=== PATIENT | female | born 1985 | race Caucasian/White ===

== ENCOUNTER 2016-10-17 13:55 | Inpatient (IN) | payer OTHER ==
[~2016-10-17] VITALS: Ht 157.5 cm; Wt 49.4 kg
--- NOTE | ~2016-10-17 | PN ---
Unit #: [id number] #: [id number] Patient: KOLE STEPHENSON [id number] [facility] [address] [place] [address] [id number] MR#: [id number] NAME: KOLE STEPHENSON ROOM: P214 Age: 31 Sex: F Admission Date: 10/17/2016 : 1985 Attending Physician: Ester Tom M.D. Admitting Physician: Ester Tom M.D. Primary Care Physician: Primary Care Physician Brittanie CHANDLER NOTES DATE 10/19/2016 DISCUSSION Ms. Stephenson is a 31-year-old white female who was seen today and chart was reviewed and case was discussed with the staff. She remains anxious, withdrawn and rather seclusive to herself (1)____ depressive symptoms. Meanwhile, she has been cooperative with treatment recommendations as she has been taking the medications and tolerating them fairly well with no reported side effects. MENTAL STATUS EXAMINATION Young white female who was casually dressed with fair personal hygiene, appears to be in no acute distress or discomfort. She was awake and alert on interaction with intact orientation. Her mood was anxious with congruent affect. She denies any suicidal or homicidal ideations. Her insight and judgement remains slightly impaired. TREATMENT PLAN 1. We will continue her on her current medications and treatment protocol. We will monitor her response to medication and make further adjustments as needed. 2. We will continue to follow up. Dictated by... Dwayne Worley/philomena TD: 10/20/2016 00:59 JOB #: [id number] Unit #: [id number] #: [id number] Patient: KOLE STEPHENSON PROGRESS NOTES Page 1 of 1 X Ester Tom MD PROGRESS NOTE
--- NOTE | ~2016-10-17 | PN ---
Unit #: [id number] #: [id number] Patient: KOLE STEPHENSON [id number] [facility] [address] [place] [address] [id number] I MR#: [id number] NAME: KOLE STEPHENSON ROOM: P214 Age: 31 Sex: F Admission Date: 10/17/2016 : 1985 Attending Physician: Ester Tom M.D. Admitting Physician: Ester Tom M.D. Primary Care Physician: Primary Care Physician Brittanie CHANDLER NOTES DATE OF SERVICE: 10/18/2016 SUBJECTIVE Ms. Stephenson is a 31-year-old single white female, who was seen today and chart was reviewed and the case was discussed with the staff. She has been anxious, withdrawn, and rather seclusive to herself. Meanwhile, she has been cooperative with treatment recommendations and has been taking the medications and tolerating them fairly well with no reported side effects. MENTAL STATUS EXAMINATION Young white female, who was casually dressed with fair personal hygiene, appears to be in no acute distress or discomfort. She was awake and alert on interaction with intact orientation. Her mood was anxious with a congruent affect. She denies any suicidal or homicidal ideations. Her insight and judgment remain slightly impaired. TREATMENT PLAN 1. We will continue her on her current medications and treatment protocol. We will monitor her response and make further adjustments as needed. 2. We will continue to follow up. Dictated by... Dwayne Worley/nida TD: 10/18/2016 13:18 JOB #: [id number] Unit #: [id number] #: [id number] Patient: KOLE STEPHENSON PROGRESS NOTES Page 1 of 1 X Ester Tom MD PROGRESS NOTE
--- NOTE | ~2016-10-17 | PA ---
Unit #: [id number] #: [id number] Patient: KOLE STEPHENSON [id number] [facility] [address] [place] [address] [id number] Kandi MR#: [id number] NAME: KOLE STEPHENSON ROOM: P214 Age: 31 Sex: F Admission Date: 10/17/2016 : 1985 Date of Assessment: 10/17/2016 Attending Physician: Ester Tom M.D. Admitting Physician: Ester Tom M.D. Primary Care Physician: Primary Care Physician No PSYCHIATRIC ASSESSMENT JOB NOTE: VERIFY ADT DATE OF SERVICE 10/17/2016 IDENTIFYING DATA Ms. Stephenson is a 31-year-old single white female, who is a resident of [place], [place], and was self-referred to the hospital on a voluntary basis. CHIEF COMPLAINT "When I was here the last time, I was not all the way honest and I was scared". HISTORY OF PRESENT ILLNESS Ms. Stephenson is a 31-year-old white female with history of substance abuse and mood disorder, who came to the hospital with COWS of 16 indicating significant withdrawal symptoms from opioids as she stated "last week, I started to get really depressed I came in the first time and I tried to quit and I thought that I could do it all on my own and I have been using heroin about 0.5 g t.i.d. for the past 2 months before that I was locked up for about a month and that was the longest I have been sober, my last use was yesterday morning and starting to have some withdrawal symptoms of body aches and stated my back hurts and I am really emotional, I feel like I need to throw out something, is trying to come out, but stated I am not sleeping, I don't sleep any night, I am starting to have diarrhea my mom has had temporary custody of my kids and my ex-boyfriend killed my fiance in front of me and I just was not in the right state of mind and I was not sleepy that I took them, I just needed her to help me, so I could get some help, I want to get clean, so I would be able to get my children back, I also want to get some stable employment and housing and know my mom will give them back to me if I do the right thing, I cry a lot and stay away from people, because of my depression, I cannot sleep and also being using Xanax, I use it about once or twice a week and I have those about 4 days ago and sometimes I think that I'm hearing things and I do not know what to do." The patient does report increasing depression, anxiety, feelings of hopelessness and helplessness, and suicidal ideations and as such, recommendation for inpatient level of care for safety and stabilization was made and the patient was stepped up to the inpatient unit. SUBSTANCE ABUSE HISTORY The patient reports a history of opioids, amphetamines, and benzodiazepine Unit #: [id number] #: [id number] Patient: KOLE STEPHENSON abuse, but opioids particularly IV heroin has been her drug of choice as she reports that she has been using 0.5 g t.i.d. PAST PSYCHIATRIC HISTORY The patient has had history of inpatient chemical dependency treatment at [facility] in the past. Review of the medical records indicate currently she is not active in any treatment program, is not seeing a psychiatrist, and is not taking any psychotropic medications. PAST MEDICAL HISTORY No acute or chronic medical illnesses. ALLERGIES No known medication allergies. CURRENT MEDICATIONS None. PERSONAL AND SOCIAL HISTORY A 31-year-old white female, who reports that she is single, unemployed, and essentially homeless, and has 3 children, they are currently with her mother and she reports poor social support system. MENTAL STATUS EXAMINATION Young white female, who was casually dressed with fair personal hygiene, appears to be in no acute distress or discomfort. She was awake and alert on interaction with intact orientation to time, place, and person. Her mood was anxious and depressed with a congruent affect. Her speech is slow and restricted in content. The patient reports having suicidal ideations, but denies any homicidal ideations, and also denies any auditory or visual hallucinations. Her insight and judgment remain significantly impaired. DIAGNOSTIC IMPRESSION Psychiatric: Opioid dependence, moderate and acute withdrawals; methamphetamine abuse, moderate; benzodiazepine abuse, moderate. Medical: None. Stressors: Moderate psychosocial stressors. TREATMENT PLAN 1. The patient has presented with history of substance abuse and mood disorder, and has been decompensating and will need inpatient hospitalization for safety and stabilization. We will start her back on her home medications. We will adjust the medications and monitor response. 2. Supportive therapy was provided to the patient. 3. Safe, structured, and nourishing environment will be reported. ESTIMATED LENGTH OF STAY 5 to 7 days. ABILITY TO HELP SELF Limited. WILLINGNESS TO HELP SELF The patient appears to be willing to help self. STRENGTHS 1. Communicative. 2. Cooperative. Unit #: [id number] #: [id number] Patient: KOLE STEPHENSON 1. Chronic dysphoric symptoms. 2. Poor social support system. DISCHARGE CRITERIA This will be contingent upon the patient's ability to show resolution of her depression and anxiety and her ability to stay safe to herself, particularly after discharge from the hospital. Dictated by... Dwayne Worley/nida TD: 10/18/2016 08:26 JOB #: [id number] PSYCHIATRIC ASSESSMENT Page 1 of 1 X Ester Tom MD X PSYCHIATRIC ASSESSMENT
--- NOTE | ~2016-10-17 | HP ---
Unit #: [id number] #: [id number] Patient: ROBERTA LOVE [id number] [place] [address] [id number] MR#: [id number] NAME: ROBERTA LOVE ROOM: P214 Age: 31 Sex: F Admission Date: 10/17/2016 : 1985 Attending Physician: Ester Tom M.D. Admitting Physician: Ester Tom M.D. Primary Care Physician: Primary Care Physician No HISTORY AND PHYSICAL HISTORY OF PRESENT ILLNESS Roberta is a 31 year old admitted to [address] [place] [address] because of her polysubstance abuse which includes IV heroin and benzodiazepines. PAST MEDICAL HISTORY 1. Long history of illicit substance abuse to include IV heroin 2. Obesity. PAST SURGICAL HISTORY Nothing reported. ALLERGIES No known drug allergies. SOCIAL HISTORY Smokes one pack per day. Drinks alcohol rarely. Admits to a long history of illicit substance abuse to include IV heroin. FAMILY HISTORY Medically noncontributory. REVIEW OF SYSTEMS CONSTITUTIONAL: No fever or chills. HEENT: Denies any sore throat, ear pain or runny nose. CARDIOVASCULAR: Denies chest pain, irregular heart rhythm or palpitations. CHEST: Denies shortness of breath or cough. No hemoptysis. GASTROINTESTINAL: Denies nausea, vomiting, diarrhea or chronic constipation. ENDOCRINE: Denies history of increased thirst or urination. No recent significant weight loss or gain. GENITOURINARY: Denies dysuria, frequency, or hematuria. SKIN: Denies any rashes. HEMATOLOGIC: Denies history of increased bleeding or bruising. MUSCULOSKELETAL: Denies any hot, swollen joints. No generalized muscle pain. NEUROLOGIC: Denies problems with vision or speech. No frequent, severe headaches. No numbness, tingling or weakness in any extremities. Denies loss of bladder or bowel control. CURRENT MEDICATIONS Detox protocol Unit #: [id number] #: [id number] Patient: ROBERTA LOVE PHYSICAL EXAMINATION GENERAL: Alert, well-nourished, in no apparent distress. VITAL SIGNS: Blood pressure 128/84, heart rate 100, respirations 16, temperature 98.6. WEIGHT: 109. HEIGHT: 5 foot 2 inches. SKIN: Warm and dry without rash or lesion. HEENT: Normocephalic. TMs not viewed. Oral and nasal passages clear. Conjunctivae clear. Pupils equal, round and reactive to light and accommodation. Extraocular movements intact. NECK: Supple without lymphadenopathy or thyromegaly. HEART: Regular rate and rhythm without murmur. LUNGS: Clear. ABDOMEN: Soft, nontender. : Not done. EXTREMITIES: No evidence of cyanosis or clubbing. She does have two plus edema up to her knees bilaterally. NEUROLOGICAL: Grossly within normal limits. Cranial Nerves: II: Visual elizabeth are intact. III, IV AND : Extraocular movements are intact. Pupils are equal, round and reactive to light. V: Facial sensation is grossly normal. VII: Facial movements and expression are normal. VIII: Auditory acuity grossly intact. IX, X: Uvula is midline. Phonation is normal. XI: Patient shrugs shoulders and turns head normally. XII: Tongue protrudes in the midline. Sensory and Motor Function: Sensory and motor sensation is grossly normal. Motor: moves all extremities well. Coordination: Gait is normal. Deep Tendon Reflexes: Intact. IMPRESSION 1. Psychiatric admission. 2. Long history of illicit substance abuse. 3. Lower extremity edema. RECOMMENDATIONS PSYCHIATRIC: Per psychiatrist. MEDICAL: 1. I see no contraindications to participating in facility's activities. 2. Lasix 20 mg 1 p.o. b.i.d. and KCL 20 mEq p.o. q day. 3. Check a BMP. MEDICAL PROGNOSIS Good. MEDICAL CONDITION Stable. Dictated by... Julienne Sharma P.A.-C. for Dwayne Jenkins Unit #: [id number] #: [id number] Patient: ROBERTA LOVE TD: 10/18/2016 01:40 JOB #: [id number] HISTORY AND PHYSICAL Page 1 of 1 X Julienne Sharma X HISTORY AND PHYSICAL
--- NOTE | ~2016-10-17 | PN ---
Unit #: [id number] #: [id number] Patient: KOLE STEPHENSON [id number] [facility] [address] [place] [address] [id number] I MR#: [id number] NAME: KOLE STEPHENSON ROOM: P214 Age: 31 Sex: F Admission Date: 10/17/2016 : 1985 Attending Physician: Ester Tom M.D. Admitting Physician: Ester Tom M.D. Primary Care Physician: Primary Care Physician Brittanie BANDA PROGRESS NOTES DATE 10/20/2016 DISCUSSION Ms. Stephenson is a 31-year-old white female who was seen today and chart was reviewed and case was discussed with the staff. She has been anxious, withdrawn and rather seclusive to herself and appears to be in distress and discomfort as she is actively detoxing and has been vomiting most of the night and was seen to be uncomfortable as of this morning. Meanwhile, she has been taking medications and tolerating them fairly well. MENTAL STATUS EXAMINATION Young white female who was casually dressed with fair personal hygiene and appears to be in no acute distress or discomfort. She was awake and alert on interaction with intact orientation. Her mood was anxious with congruent affect. She denies any suicidal or homicidal ideations. Her insight and judgement remains slightly impaired. TREATMENT PLAN 1. We will continue on current medications and treatment protocol. Will monitor her response to the medications and make further adjustments as needed. 2. Will continue to follow up. Dictated by... Dwayne Worley/elvi TD: 10/20/2016 23:11 JOB #: [id number] Unit #: [id number] #: [id number] Patient: KOLE STEPHENSON PROGRESS NOTES Page 1 of 1 X Ester Tom MD PROGRESS NOTE
--- NOTE | ~2016-10-17 | PN ---
Unit #: [id number] #: [id number] Patient: KOLE STEPHENSON [id number] [facility] [address] [place] [address] [id number] I MR#: [id number] NAME: KOLE STEPHENSON ROOM: P214 Age: 31 Sex: F Admission Date: 10/17/2016 : 1985 Attending Physician: Ester Tom M.D. Admitting Physician: Ester Tom M.D. Primary Care Physician: Primary Care Physician Brittanie CHANDLER NOTES DATE 10/21/2016 DISCUSSION Ms. Stephenson is a 31-year-old white female with substance abuse and mood disorder who was seen today and chart was reviewed and case was discussed with the staff. She has been anxious, irritable and showing poor insight into her situation as she has been detoxing but then has been wanting to leave the hospital. Meanwhile, she has been taking medications and tolerating them fairly well with no reported side effects. MENTAL STATUS EXAMINATION Young white female who was casually dressed with fair personal hygiene and appears to be in no acute distress or discomfort. She was awake and alert on interaction with intact orientation. Her mood was anxious with congruent affect. She denies any suicidal or homicidal ideation. Her insight and judgement remains slightly impaired. TREATMENT PLAN 1. Will continue on current medications and treatment protocol. Will monitor her response to the medications and make further adjustments as needed. 2. Will continue to follow up. Dictated by... Ester Tom M.D. IAA/elvi TD: 10/21/2016 22:50 JOB #: [id number] Unit #: [id number] #: [id number] Patient: KOLE STEPHENSON PROGRESS NOTES Page 1 of 1 X Ester Tom MD PROGRESS NOTE
--- NOTE | ~2016-10-17 | DS ---
Unit #: [id number] #: [id number] Patient: [facility]PHENSON [id number] [address] [place] [address] [id number] I MR#: [id number] NAME: KOLE STEPHENSON ROOM: [facility] Age: 31 Sex: F Admission Date: 10/17/2016 : 1985 Discharge Date: 10/22/2016 Attending Physician: Ester Tom M.D. Primary Care Physician: Primary Care Physician No DISCHARGE SUMMARY IDENTIFYING DATA Ms. Stephenson is a 31-year-old single white female, who is a resident of [place], [place], and was self-referred to the hospital on a voluntary basis. DISCHARGE DIAGNOSES Psychiatric: Opioid dependence, moderate, in acute withdrawals; methamphetamine abuse, moderate; and benzodiazepine abuse, moderate. Medical: None. Stressors: Moderate psychosocial stressors. HISTORY OF PRESENT ILLNESS Please see initial psychiatric evaluation for details. PAST PSYCHIATRIC HISTORY Please see initial psychiatric evaluation for details. PAST MEDICAL HISTORY Please see initial psychiatric evaluation for details. HOSPITAL COURSE The patient was admitted to the adult psychiatric and chemical dependency unit at [facility] and was oriented to the hospital environment. Routine p.r.n. medications were initiated and she was started back on her home medications and medications were adjusted and she was closely monitored. She was taking the medications regularly and was tolerating them fairly well and was able to come out of the detox without any complications and was willing to continue treatment on an outpatient basis, and as such, it was decided that she will be discharged home and will continue treatment on an outpatient basis. DISCHARGE MEDICATIONS None. DISCHARGE CONDITION Stable. PROGNOSIS Fair. Dictated by... Ester Tom M.D. Unit #: [id number] #: [id number] Patient: KOLE STEPHENSON IAA/modl TD: 10/22/2016 18:37 JOB #: [id number] DISCHARGE SUMMARY Page 1 of 1 X Ester Tom MD DISCHARGE SUMMARY
[2016-10-19 12:35] LABS: BASOPHIL# 0.1 X10e3 (0-0.3); BASOPHIL% 0.9 % (0-2.5); EOSINOPHIL# 0.2 X10e3 (0-0.7); EOSINOPHIL% 2.8 % (0.0-7.0); HEMATOCRIT 38.5 % (35.0-45.0); HEMOGLOBIN 12.6 gm/dL (12.0-16.0); LYMPHOCYTE# 2.6 X10e3 (1.0-3.5); LYMPHOCYTE% 30.1 % (17.0-45.0); MEAN CELL VOLUME 78.4 FL (83-96); MEAN CORPUSCULAR HEMOGLOBIN 25.5 PG (28-34); MEAN CORPUSCULAR HGB CONC 32.6 g/dL (30-36); MEAN PLATELET VOLUME 7.5 FL (6.5-11.5); MONOCYTE# 0.8 X10e3 (0-1.0); NEUTROPHIL% 57.2 % (40-75); PLATELET COUNT 340 X10e3 (140-420); RED BLOOD COUNT 4.92 X10e (3.90-5.30); WHITE BLOOD COUNT 8.7 X10e3 (4.0-10.5)
[2016-10-19 12:40] LABS: DIFF IND NO
[2016-10-19 12:54] LABS: ALBUMIN SERUM 3.5 g/dL (3.5-5.0); BILIRUBIN,TOTAL 0.6 mg/dL (0.2-2.0); BUN/CREATININE RATIO 13.33; CALCIUM SERUM 8.9 mg/dL (8.4-10.2); CREATININE SERUM 0.6 mg/dL (0.6-1.4); GLOM FILT RATE Estimated 123.2 mL/min (>60); POTASSIUM 3.9 mmol/L (3.5-5.1); PROTEIN TOTAL SERUM 6.7 g/dL (6.0-8.3)
[2016-10-22 09:58] LABS: URINE APPEARANCE CLOUDY; URINE BLOOD NEG (NEG); URINE COLOR YELLOW; URINE GLUCOSE NORM (NORM); URINE KETONE 3+ (NEG); URINE LEUKOCYTE ESTERASE NEG (NEG); URINE NITRATE NEG (NEG); URINE PROTEIN 1+ (NEG); URINE SPECIFIC GRAVITY 1.025 (1.003-1.035); URINE UROBILINOGEN NORM (NORM)
[2016-10-22 10:20] LABS: AMPHETAMINE POS (NEG); BARBITURATES NEG (NEG); BENZODIAZEPINES NEG (NEG); COCAINE NEG (NEG); MARIJUANA NEG (NEG); OPIATES POS (NEG); TRICYCLIC ANTIDEPRESSANTS NEG (NEG); U METHADONE NEG (NEG)
[2016-10-22 10:33] LABS: URINE BILIRUBIN NEG (NEG)
[2016-10-22 10:35] LABS: URINE SQUAMOUS EPITHELIAL CELL MOD /[HPF]
[2016-10-22 10:36] LABS: URINE AMORPHOUS SEDIMENT AMORP URATES
== END 2016-10-22 13:09 | disposition home or self-care (01) | DRG 897 ==
LOC: P2S 15:02
PROVIDERS: Psychiatry & Neurology Psychiatry
PROC: HZ2ZZZZ Detoxification Services for Substance Abuse Treatment (ICD-10-PCS; principal; 2016-10-17)
DX: F11.23 Opioid dependence with withdrawal (principal); R45.851 Suicidal ideations; F13.20 Sedative, hypnotic or anxiolytic dependence, uncomplicated; F15.20 Other stimulant dependence, uncomplicated; F17.210 Nicotine dependence, cigarettes, uncomplicated
CPT/HCPCS: 80053; 80307; 81003; 84703; 85025; 86592; J2550